=== PATIENT | female | born 1980 | race African-American/Black ===

== ENCOUNTER 2020-01-31 21:44 | Emergency (ER) | payer OTHER ==
--- NOTE | 2020-01-31 22:32 | ER ---
Nurse's Notes [facility] Name: Leda Camejo Age: 39 yrs Sex: Female : 1980 Arrival Date: 01/31/2020 Time: 21:47 Bed 11 Private MD: Diagnosis: Foreign Body to Right Upper Lip Presentation: 01/30 22:01 Chief complaint: Patient states: States a small piece of her piercing is stuck in the ll1 right upper lip for 2 weeks. Site is painful and sore for 3 days. States the piercing piece is still in her lip. No fever. Coronavirus screen: Proceed with normal triage. Patient denies a cough. Patient denies shortness of breath or difficulty breathing. Patient denies measured and/or subjective temperature greater than 100.4F prior to today's visit. Patient denies travel on a cruise ship or to a country the [facility] currently lists as an affected area. Patient denies contact with known and/or suspected case of COVID-19. Ebola Screen: Patient denies travel to an Ebola-affected area in the 21 days before illness onset. Initial Sepsis Screen: Does the patient meet any 2 criteria? No. Patient's initial sepsis screen is negative. Does the patient have a suspected source of infection? No. Patient's initial sepsis screen is negative. Risk Assessment: Do you want to hurt yourself or someone else? Patient reports no desire to harm self or others. Onset of symptoms was January 28, 2020. 22:01 Method Of Arrival: Ambulatory 1 22:01 Acuity: RJ 4 ll1 Historical: - Allergies: 22:03 No Known Allergies; ll1 - PMHx: 22:03 None; ll1 - PSHx: 22:03 ; Cholecystectomy; ll1 - Social history:: Smoking status: Patient denies any tobacco usage or history of. Patient/guardian denies using alcohol, street drugs, tobacco products. Screenin:08 Abuse screen: Denies threats or abuse. Nutritional screening: No deficits noted. ll1 Tuberculosis screening: No symptoms or risk factors identified. Fall Risk None identified. Total Resendez Fall Scale indicates No Risk (0-24 pts). Assessment: 22:06 General: Appears in no apparent distress. Behavior is calm, cooperative. Pain: ll1 Complains of pain in upper lip Quality of pain is described as aching, Pain began 2-3 days ago. Derm: Reports foreign body stuck in upper lip for 2 weeks, painful for 3 days. No fever or drainage at this time. Vital Signs: 22:01 BP 146 / 84; Pulse 73; Resp 18; Temp 98.4; Pulse Ox 100% ; Pain 7/10; ll1 ED Course: 21:47 Patient arrived in ED. cl3 22:03 Triage completed. ll1 22:03 Arm band placed on. ll1 22:06 Charles Abarca, RN is Primary Nurse. ll1 22:08 Patient has correct armband on for positive identification. Bed in low position. Call ll1 light in reach. Side rails up X 1. 22:09 Clif Brennan MD is Attending Physician. kdr 22:31 Marylu Mims MD is Referral Physician. kdr Administered Medications: 22:34 Drug: Bactrim (160 mg-800 mg (DS) 1 tablet Route: PO; sg Outcome: 22:32 Discharge ordered by . kdr 22:37 Patient left the ED. sg Signatures: Shant Piedra RN RN sg Clif Brennan MD MD [facility] Jayda Abarca cl3 Charles Abarca RN RN 1
--- NOTE | 2020-01-31 22:32 | EDPHYS ---
Physician Documentation [facility] Name: Leda Camejo Age: 39 yrs Sex: Female : 1980 Arrival Date: 01/31/2020 Time: 21:47 Bed 11 Private MD: ED Physician Clif Brennan HPI: 01/30 22:34 This 39 yrs old Black Female presents to ER via Ambulatory with complaints of Lips kdr Swelling. 22:34 The patient presents with redness, swelling, Right upper lip pain and swelling with kdr occasional purulent discharge. The patient states that she has a lip stud imbedded in her lip. Onset: The symptoms/episode began/occurred gradually, at an unknown time. Duration: The symptoms are continuous, are intermittent, with no pattern. Modifying factors: The symptoms are alleviated by nothing, the symptoms are aggravated by nothing. Associated signs and symptoms: The patient has no apparent associated signs or symptoms. Severity of symptoms: At their worst the symptoms were very mild, in the emergency department the symptoms are unchanged. The patient has not experienced similar symptoms in the past. The patient has not recently seen a physician. Historical: - Allergies: 22:03 No Known Allergies; ll1 - PMHx: 22:03 None; ll1 - PSHx: 22:03 ; Cholecystectomy; ll1 - Social history:: Smoking status: Patient denies any tobacco usage or history of. Patient/guardian denies using alcohol, street drugs, tobacco products. ROS: 22:34 Constitutional: Negative for fever, chills, and weight loss, Eyes: Negative for injury, kdr pain, redness, and discharge, Neck: Negative for injury, pain, and swelling. 22:34 Skin: Negative for injury, rash, and discoloration, The patient has swelling and drainage of the right upper lip from a lip stud Exam: 22:34 Constitutional: This is a well developed, well nourished patient who is awake, alert, kdr and in no acute distress. Head/Face: Normocephalic, atraumatic. ENT: The patient has mildly swollen right upper lip thgat is not tense or showing any s/.s of an abcess that needs immediate intervention Vital Signs: 22:01 BP 146 / 84; Pulse 73; Resp 18; Temp 98.4; Pulse Ox 100% ; Pain 7/10; ll1 MDM: 22:32 Patient medically screened. kdr 22:34 Data reviewed: vital signs, nurses notes. Counseling: I had a detailed discussion with kdr the patient and/or guardian regarding: the historical points, exam findings, and any diagnostic results supporting the discharge/admit diagnosis, the need for outpatient follow up. Administered Medications: 22:34 Drug: Bactrim (160 mg-800 mg (DS) 1 tablet Route: PO; sg Disposition: 01/31/20 22:32 Discharged to Home. Impression: Foreign Body to Right Upper Lip. - Condition is Stable. - Discharge Instructions: Lip Foreign Body. - Prescriptions for Keflex 500 mg Oral Capsule - take 1 capsule by ORAL route every 6 hours for 10 days; 40 capsule. - Medication Reconciliation Form, Thank You Letter, Antibiotic Education form. - Work release form (01/31/20 22:47). sg - Follow up: Private Physician; When: 2 - 3 days; Reason: If symptoms return, Further diagnostic work-up, Recheck today's complaints, Continuance of care, Re-evaluation by your physician. Follow up: Marylu Mims MD; When: 2 - 3 days; Reason: Further diagnostic work-up, Recheck today's complaints, Continuance of care, Re-evaluation by your physician. - Problem is an ongoing problem. - Symptoms are unchanged. Signatures: Shant Piedra RN RN sg Clif Brennan MD MD kdr Charles Abarca RN RN ll1 Corrections: (The following items were deleted from the chart) 22:37 22:32 01/31/2020 22:32 Discharged to Home. Impression: Foreign Body to Right Upper Lip. sg Condition is Stable. Forms are Medication Reconciliation Form, Thank You Letter, Antibiotic Education, Prescription Opioid Use. Follow up: Private Physician; When: 2 - 3 days; Reason: If symptoms return, Further diagnostic work-up, Recheck today's complaints, Continuance of care, Re-evaluation by your physician. Follow up: Marylu Mims; When: 2 - 3 days; Reason: Further diagnostic work-up, Recheck today's complaints, Continuance of care, Re-evaluation by your physician. Problem is an ongoing problem. Symptoms are unchanged. kdr
[2020-01-31] MEDS ORDERED: SMZ./TMP. 800/160 MG TABLET ONE (22:40)
[2020-01-31 23:49] VITALS: BP 146/84; TEMP 98.4; O2SAT 100
== END 2020-01-31 22:37 | disposition home or self-care (01) ==
LOC: ER 21:44
DX: S00.551A Superficial foreign body of lip, initial encounter (principal)
CPT/HCPCS: 99282